=== PATIENT | female | born 1980 | race Caucasian/White ===

== ENCOUNTER 2017-06-01 16:30 | Emergency (ER) | payer MEDICAID ==
[~2017-06-01] VITALS: Ht 152.4 cm; Wt 67.1 kg
[2017-06-01 18:49] VITALS: BP 106/67
== END 2017-06-01 18:49 | disposition home or self-care (01) ==
LOC: ED 16:30
DX: M54.5 Low back pain (principal); G43.909 Migraine, unspecified, not intractable, without status migrainosus
CPT/HCPCS: J1885

== ENCOUNTER 2017-06-21 09:13 | Emergency (ER) | payer MEDICAID ==
[~2017-06-21] VITALS: Ht 157.5 cm; Wt 72.6 kg
[2017-06-21 09:16] VITALS: BP 128/73; Ht 157.5 cm; Wt 72.6 kg
== END 2017-06-21 11:30 | disposition home or self-care (01) ==
LOC: ED 09:13
DX: M54.5 Low back pain (principal)
CPT/HCPCS: J1885

== ENCOUNTER 2017-10-08 12:13 | Emergency (ER) | payer MEDICAID ==
[~2017-10-08] VITALS: Ht 154.9 cm; Wt 68.9 kg
[2017-10-08 12:20] VITALS: Ht 154.9 cm; Wt 68.9 kg
[2017-10-08 13:33] VITALS: BP 98/52
== END 2017-10-08 13:33 | disposition home or self-care (01) ==
LOC: ED 12:13
DX: N39.0 Urinary tract infection, site not specified (principal); G43.909 Migraine, unspecified, not intractable, without status migrainosus
CPT/HCPCS: J1885

== ENCOUNTER 2018-07-31 07:03 | Emergency (ER) | payer MEDICAID ==
[~2018-07-31] VITALS: Ht 154.9 cm; Wt 69.4 kg
[2018-07-31 07:08] VITALS: Ht 154.9 cm; Wt 69.4 kg
[2018-07-31 08:13] VITALS: BP 113/64
== END 2018-07-31 08:13 | disposition home or self-care (01) ==
LOC: ED 07:03
DX: M54.40 Lumbago with sciatica, unspecified side (principal); G43.909 Migraine, unspecified, not intractable, without status migrainosus
CPT/HCPCS: J1885

== ENCOUNTER 2019-07-24 14:25 | Emergency (ER) | payer MEDICAID, SELFPAY ==
[~2019-07-24] VITALS: Ht 160 cm; Wt 73.0 kg
[2019-07-24 14:51] VITALS: Ht 160 cm; Wt 73.0 kg
[2019-07-24 16:59] VITALS: BP 118/63
== END 2019-07-24 16:59 | disposition home or self-care (01) ==
LOC: ED 14:25
DX: G43.909 Migraine, unspecified, not intractable, without status migrainosus (principal); Z20.828 Contact with and (suspected) exposure to other viral communicable diseases
CPT/HCPCS: J0780; J1885

== ENCOUNTER 2019-08-12 03:10 | Emergency (ER) | payer MEDICAID, SELFPAY ==
[~2019-08-12] VITALS: Ht 165.1 cm; Wt 68.0 kg
[2019-08-12 03:16] VITALS: Ht 165.1 cm; Wt 68.0 kg
[2019-08-12 06:21] VITALS: BP 108/55
== END 2019-08-12 06:21 | disposition home or self-care (01) ==
LOC: ED 03:10
DX: G47.9 Sleep disorder, unspecified (principal); F41.9 Anxiety disorder, unspecified; G43.909 Migraine, unspecified, not intractable, without status migrainosus